=== PATIENT | female | born 1985 | race Caucasian/White ===

== ENCOUNTER 2020-05-01 07:56 | Emergency (ER) | payer OTHER ==
[~2020-05-01] VITALS: Ht 167.6 cm; Wt 63.5 kg
[2020-05-01] MEDS ORDERED: NEURONTIN100 MG PO (08:07)
[2020-05-01] MEDS ORDERED: BIRTH CONTROL (08:07)
[2020-05-01] MEDS ORDERED: NORCO 5-325 TA1 EAC1 PO (08:30)
[2020-05-01 09:04] VITALS: BP 120/75
== END 2020-05-01 09:04 | disposition home or self-care (01) ==
LOC: M.ERS 07:56
DX: M79.662 Pain in left lower leg (principal); M79.661 Pain in right lower leg; R11.2 Nausea with vomiting, unspecified; R53.1 Weakness; G47.00 Insomnia, unspecified; R53.83 Other fatigue; G62.9 Polyneuropathy, unspecified

== ENCOUNTER → 2020-05-01 | Outpatient (CLI) | payer OTHER ==
[~2020-05-01] MED LIST: BIRTH CONTROL; NEURONTIN100 MG PO; NORCO 5-325 TA1 EAC1 PO
== END ==
LOC: M.LAB 10:10 → M.MRI 11:30
PROVIDERS: ATTEND Psychiatry & Neurology Neuromuscular Medicine
DX: G31.9 Degenerative disease of nervous system, unspecified (principal); J34.89 Other specified disorders of nose and nasal sinuses